=== PATIENT | female | born 1975 | race Caucasian/White ===

== ENCOUNTER 2021-06-22 10:36 | Outpatient (REF) | payer BC, SELFPAY ==
[2021-06-22 10:40] LABS: MANUAL DIFF FLAG NO
[2021-06-22 11:13] LABS: Basophils Absolute Auto 0.1 X10*3/uL (0.0-0.2); Basophils Percent Auto 0.8 % (0-2); Eosinophils Absolute Auto 0.2 X10*3/uL (0.0-0.4); Eosinophils Percent Auto 2.2 % (0-4); Hematocrit 43.8 % (37-47); Imm Gran Abs Auto 0.04 X10*3/uL (0.00-0.03); Imm Gran Pct Auto 0.5 % (0.0-0.4); Lymphocytes Absolute Auto 2.3 X10*3/uL (1.2-4.9); Lymphocytes Percent Auto 26.2 % (20-40); Mean Corpuscular Hemoglobin 29.9 pg (27.0-33.0); Mean Corpuscular Volume 93.6 fL (80-98); Mean Platelet Volume 9.7 fL (9.4-12.3); Monocytes Absolute Auto 0.6 X10*3/uL (0.1-1.2); Monocytes Percent Auto 7.1 % (2-11); Neutrophils Absolute Auto 5.5 X10*3/uL (2.0-8.3); Neutrophils Percent Auto 63.2 % (45-73); Platelet Count 404 X10*3/uL (160-400); Red Blood Count 4.68 X10*6/uL (4.20-5.50); Red Cell Distribution Width 12.9 % (11.0-16.0); White Blood Count 8.7 X10*3/uL (4.8-10.8)
[2021-06-22 11:34] LABS: Alanine Aminotransferase 13 U/L (0-31); Albumin Level 4.5 g/dL (3.5-5.0); Alkaline Phosphatase 63 U/L (39-117); Anion Gap 13 (12-20); Aspartate Amino Transferase 14 U/L (5-31); Bilirubin Total 0.6 mg/dL (0.0-1.0); Blood Urea Nitrogen 17 mg/dL (9-16); Calcium 9.1 mg/dL (8.4-10.2); Carbon Dioxide 24 mmol/L (22-29); Chloride 106 mmol/L (96-108); Cholesterol 221 mg/dL; Estimated Glomerular Filt Rate > 60; Glucose Fasting 98 mg/dL (60-99); HDL Cholesterol 43 mg/dL; LDL Cholesterol Calculated 152 mg/dl; Potassium 4.5 mmol/L (3.3-5.1); Sodium 138 mmol/L (135-145); Total Protein 7.3 g/dL (6.5-8.0); Triglycerides 132 mg/dL
[2021-06-22 11:42] LABS: Appearance Urine CLEAR; Color Urine YELLOW; Glucose Urine UA NEG (NEG); Leukocyte Esterase Urine NEG (NEG); Nitrite Urine NEG (NEG); Specific Gravity - Urine 1.015 (1.005-1.025); Urine Blood TRACE (NEG); Urine Ketones NEG (NEG); Urine Protein NEG (NEG-TRACE)
[2021-06-22 11:57] LABS: Bacteria Urine TRACE /LPF; Squamous Epithelial Cell Urine TRACE /LPF
[2021-06-22 11:58] LABS: RBC Urine 0 /HPF (0); WBC Urine 0 /HPF (0-4)
== END 2021-06-22 10:37 | disposition home or self-care (01) ==
LOC: HO.LNP 10:36
PROVIDERS: Visit Provider Internal Medicine
DX: Z00.00 Encounter for general adult medical examination without abnormal findings (principal); Z13.220 Encounter for screening for lipoid disorders
CPT/HCPCS: 80053; 80061; 81001; 81003; 85025

== ENCOUNTER 2022-06-30 10:41 | Outpatient (REF) | payer BC, SELFPAY ==
[2022-06-30 10:43] LABS: MANUAL DIFF FLAG NO
[2022-06-30 11:36] LABS: Basophils Absolute Auto 0.1 X10*3/uL (0.0-0.2); Basophils Percent Auto 0.8 % (0-2); Eosinophils Absolute Auto 0.2 X10*3/uL (0.0-0.4); Eosinophils Percent Auto 2.1 % (0-4); Hematocrit 44.2 % (37.0-47.0); Hemoglobin 14.7 g/dl (12.0-16.0); Imm Gran Abs Auto 0.04 X10*3/uL (0.00-0.03); Imm Gran Pct Auto 0.4 % (0.0-0.4); Lymphocytes Absolute Auto 2.3 X10*3/uL (1.2-4.9); Lymphocytes Percent Auto 25.7 % (20-40); Mean Corpuscular HGB Conc 33.3 g/dl (31.0-35.0); Mean Corpuscular Hemoglobin 30.8 pg (27.0-33.0); Mean Corpuscular Volume 92.5 fL (80.0-98.0); Mean Platelet Volume 9.8 fL (9.4-12.3); Monocytes Absolute Auto 0.6 X10*3/uL (0.1-1.2); Monocytes Percent Auto 6.4 % (2-11); Neutrophils Absolute Auto 5.8 x10*3/uL (2.0-8.3); Neutrophils Percent Auto 64.6 % (45-73); Platelet Count 411 X10*3/uL (160-400); Red Blood Count 4.78 X10*6/uL (4.20-5.50); Red Cell Distribution Width 12.6 % (11.0-16.0)
[2022-06-30 11:41] LABS: Appearance Urine Cloudy; Color Urine Yellow; Glucose Urine UA Negative (Negative); Leukocyte Esterase Urine Negative (Negative); Nitrite Urine Negative (Negative); Urine Blood Negative (Negative); Urine Ketones Negative (Negative); Urine Protein Negative (Neg-Trace)
[2022-06-30 11:56] LABS: Alanine Aminotransferase 20 U/L (0-31); Albumin Level 4.4 g/dL (3.5-5.0); Alkaline Phosphatase 76 U/L (39-117); Anion Gap 17 (12-20); Aspartate Amino Transferase 18 U/L (5-31); Bacteria Urine 4+ (None Seen); Bilirubin Total 0.3 mg/dL (0.0-1.0); Blood Urea Nitrogen 16 mg/dL (9-16); Calcium 9.3 mg/dL (8.4-10.2); Carbon Dioxide 24 mmol/L (22-29); Chloride 103 mmol/L (96-108); Cholesterol 203 mg/dL; Estimated Glomerular Filt Rate 56; Glucose Fasting 94 mg/dL (60-99); HDL Cholesterol 48 mg/dL; Hyaline Casts Urine 0-2 /LPF (0-2); LDL Cholesterol Calculated 131 mg/dl; Potassium 4.6 mmol/L (3.3-5.1); RBC Urine 0-2 /HPF (0-2); Sodium 139 mmol/L (135-145); Total Protein 7.5 g/dL (6.5-8.0); Triglycerides 122 mg/dL; WBC Urine 0-5 /HPF (0-5)
== END 2022-06-30 10:42 | disposition home or self-care (01) ==
LOC: HO.LNP 10:41
PROVIDERS: Visit Provider Internal Medicine
DX: Z00.00 Encounter for general adult medical examination without abnormal findings (principal)
CPT/HCPCS: 80053; 80061; 81001; 85025

== ENCOUNTER 2023-06-30 10:49 | Outpatient (REF) | payer BC, SELFPAY ==
[2023-06-30 10:56] LABS: MANUAL DIFF FLAG NO
[2023-06-30 11:19] LABS: Appearance Urine Cloudy; Color Urine Yellow; Glucose Urine UA Negative (Negative); Leukocyte Esterase Urine Trace (Negative); Nitrite Urine Negative (Negative); PH 5.5 (5.0-9.0); Specific Gravity - Urine >= 1.030 (1.005-1.025); UMIC TRIGGER UACC YES; Urine Blood Negative (Negative); Urine Ketones Negative (Negative); Urine Protein Negative (Neg-Trace)
[2023-06-30 11:25] LABS: Basophils Absolute Auto 0.1 X10*3/uL (0.0-0.2); Basophils Percent Auto 0.8 % (0-2); Eosinophils Absolute Auto 0.3 X10*3/uL (0.0-0.4); Eosinophils Percent Auto 3.6 % (0-4); Hematocrit 44.4 % (37.0-47.0); Hemoglobin 14.3 g/dl (12.0-16.0); Imm Gran Abs Auto 0.02 X10*3/uL (0.00-0.03); Imm Gran Pct Auto 0.3 % (0.0-0.4); Lymphocytes Absolute Auto 2.2 X10*3/uL (1.2-4.9); Lymphocytes Percent Auto 27.7 % (20-40); Mean Corpuscular HGB Conc 32.2 g/dl (31.0-35.0); Mean Corpuscular Hemoglobin 30.5 pg (27.0-33.0); Mean Corpuscular Volume 94.7 fL (80.0-98.0); Mean Platelet Volume 9.9 fL (9.4-12.3); Monocytes Absolute Auto 0.6 X10*3/uL (0.1-1.2); Monocytes Percent Auto 7.3 % (2-11); Neutrophils Absolute Auto 4.7 x10*3/uL (2.0-8.3); Neutrophils Percent Auto 60.3 % (45-73); Platelet Count 383 X10*3/uL (160-400); Red Blood Count 4.69 X10*6/uL (4.20-5.50); Red Cell Distribution Width 12.5 % (11.0-16.0); White Blood Count 7.8 X10*3/uL (4.8-10.8)
[2023-06-30 11:35] LABS: Alanine Aminotransferase 21 U/L (0-31); Albumin Level 4.4 g/dL (3.5-5.0); Alkaline Phosphatase 65 U/L (39-117); Anion Gap 15 (12-20); Aspartate Amino Transferase 20 U/L (5-31); Bilirubin Total 0.5 mg/dL (0.0-1.0); Blood Urea Nitrogen 30 mg/dL (9-16); Calcium 9.6 mg/dL (8.4-10.2); Carbon Dioxide 24 mmol/L (22-29); Chloride 107 mmol/L (96-108); Cholesterol 210 mg/dL (<200); Estimated Glomerular Filt Rate 56; Glucose Fasting 86 mg/dL (60-99); HDL Cholesterol 50 mg/dL (>40); LDL Cholesterol Calculated 134 mg/dL (<100); Potassium 4.2 mmol/L (3.3-5.1); Sodium 142 mmol/L (135-145); Total Protein 7.6 g/dL (6.5-8.0); Triglycerides 130 mg/dL (<150)
[2023-06-30 11:40] LABS: Bacteria Urine 4+ (None Seen); Calcium Oxalate Crystals Urine Present; Hyaline Casts Urine 0-2 /LPF (0-2); RBC Urine 0-2 /HPF (0-2); WBC Urine 0-5 /HPF (0-5)
== END 2023-06-30 10:50 | disposition home or self-care (01) ==
LOC: HO.LNP 10:49
PROVIDERS: Visit Provider Internal Medicine
DX: Z00.00 Encounter for general adult medical examination without abnormal findings (principal)
CPT/HCPCS: 80053; 80061; 81001; 85025

== ENCOUNTER 2023-07-07 10:47 | Day surgery (SDC) | payer BC, SELFPAY ==
--- NOTE | 2023-07-06 11:49 | HO.ANESPROP2 ---
Documented by User: Collette Polanco NP 07/06/23 11:50 HPI - Anesthesia Eval Consult details Narrative: 48yo F for Colonoscopy [facility] Past Medical History Medical History (Updated 07/06/23 @ 11:47 by Collette Polanco NP) Acne Migraines Surgical History Surgical History (Updated 07/06/23 @ 12:27 by Geno Kingston) H/O wisdom tooth extraction Hx of hand surgery History of cholecystectomy Social History Patient Tobacco Use Status: Never used Tobacco Use of substances other than those prescribed or required for medical reasons: No Are you DNR?: No Advance Directives: No Advance Directives Information Provided: Yes Recently lost weight without trying: No Nutrition Risks: No Nutritional Risk : No Poor oral hygiene: No Meds Allergies Allergy/AdvReac Type Severity Reaction Status Date / Time codeine Allergy Unknown Unknown Verified 07/06/23 11:47 Home Medications Medication Instructions Recorded Confirmed Last Taken Type clindamycin 1.2 % (1 % topical DAILY 07/06/23 07/05/23 History base)-benzoyl peroxide 5 % topical gel galcanezumab-gnlm 120 mg/mL mg subcut 07/06/23 06/29/23 History subcutaneous syringe (Emgality) spironolactone 50 mg tablet 50 mg PO BID 07/06/23 07/07/23 07/06/23 History 0800 sumatriptan 85 mg-naproxen 500 mg tab PO 07/06/23 Unknown History tablet tazarotene 07/06/23 Unknown History verapamil 120 mg tablet,extended 120 mg PO DAILY 07/06/23 07/07/23 07/05/23 History release Exam Exam Date and Time: July 06, 2023 114 Pertinent Lab Results Pertinent Lab Results: Laboratory Tests 06/30/23 07:15 WBC 7.8 Hgb 14.3 Hct 44.4 Plt Count 383 Sodium 142 Potassium 4.2 Chloride 107 Carbon Dioxide 24 BUN 30 H Creatinine 1.05 Assessment and Plan Assessment Anesthesia Assessment: Chart Reviewed Documented by User: Selwyn Anderson MD 08/10/23 18:30 [facility] Past Medical History Medical History (Updated 07/06/23 @ 11:47 by Collette Polanco NP) Acne Migraines Functional capacity: independent ambulation Family History Family history of problems with anesthesia: No Surgical History Surgical History (Updated 07/06/23 @ 12:27 by Geno Kingston) H/O wisdom tooth extraction Hx of hand surgery History of cholecystectomy History of Problems with Anesthesia: No Social History Patient Tobacco Use Status: Never used Tobacco Use of substances other than those prescribed or required for medical reasons: No Are you DNR?: No Advance Directives: No Advance Directives Information Provided: Yes Recently lost weight without trying: No Nutrition Risks: No Nutritional Risk : No Poor oral hygiene: No Meds Allergies Allergy/AdvReac Type Severity Reaction Status Date / Time codeine Allergy Unknown Unknown Verified 07/06/23 11:47 Home Medications Medication Instructions Recorded Confirmed Last Taken Type clindamycin 1.2 % (1 % topical DAILY 07/06/23 07/05/23 History base)-benzoyl peroxide 5 % topical gel galcanezumab-gnlm 120 mg/mL mg subcut 07/06/23 06/29/23 History subcutaneous syringe (Emgality) spironolactone 50 mg tablet 50 mg PO BID 07/06/23 07/07/23 07/06/23 History 0800 sumatriptan 85 mg-naproxen 500 mg tab PO 07/06/23 Unknown History tablet tazarotene 07/06/23 Unknown History verapamil 120 mg tablet,extended 120 mg PO DAILY 07/06/23 07/07/23 07/05/23 History release Exam Airway Mallampati Class: III Loose/Missing/Broken Teeth: Yes Assessment and Plan Assessment Anesthesia Assessment: Anesthesia Plan Discussed Final Anesthetic Review Family History of Problems with Anesthesia: No History of Problems with Anesthesia: No NPO: Yes ASA Class: II Final Preanesthetic Review: Meds/Allgs Chart Reviewed, Consent Obtained/Reviewed and Anes Risks/Benef Reviewed Patient Risk: Intermediate Procedure Risk: Intermediate Anesthetic Plan Anesthetic Plan: MAC: and Agree w/ Assess. and Plan Disposition: Standard PACU
[2023-07-07 11:12] VITALS: BMI 35.0
[2023-07-07 11:30] VITALS: BP 120/73; PULSE 84; RESP 20; TEMP 36.9; O2SAT 97
[2023-07-07] MEDS: Lactated Ringers 1,000 ML 100 ML IVCONT (11:46)
[2023-07-07 12:00] LABS: UPreg QC Valid YES; Urine Pregnancy NEGATIVE (NEGATIVE)
--- NOTE | 2023-07-07 13:08 | P.BOP_ITS ---
Brief Operative Note Date of Service: 07/07/23 Pre-op diagnosis: Screening Post-op diagnosis: other (Polyps) Procedure: Colonoscopy to the cecum with hot snare polypectomy x 2 Surgeon: Hayder Salinas MD Anesthesia: MAC Was an Lay Out And Detail Drafter used for this Procedure?: No Estimated blood loss (mL): 0 Pathology: other (A. Ascending colon polyp B. Polyp at 50cm) Condition: stable Disposition: PACU
[2023-07-07 13:10] VITALS: BP 122/75; PULSE 96; RESP 16; TEMP 36.2; O2SAT 97
[2023-07-07 13:25] VITALS: BP 131/78; PULSE 90; RESP 16; O2SAT 97
--- NOTE | 2023-07-07 13:26 | OP_ITS ---
DATE OF SERVICE: 07/07/2023 SURGEON: Hayder Salinas MD INDICATIONS: The patient presents for evaluation of colorectal cancer screening. Full consent has been obtained from her for this, including risks of bleeding and perforation. PREOPERATIVE DIAGNOSIS: Colorectal cancer screening. POSTOPERATIVE DIAGNOSIS: PROCEDURE PERFORMED: Colonoscopy to the cecum with hot snare polypectomy x2. ESTIMATED BLOOD LOSS: COMPLICATIONS: ANESTHESIA: Monitored anesthesia care. ASSISTANTS: SPECIMENS: POSTOPERATIVE DIAGNOSES: Colorectal cancer screening, colon polyps, mild diverticulosis, and internal hemorrhoids. DESCRIPTION OF PROCEDURE: The patient was placed in the left lateral decubitus position the digital rectal exam revealed no abnormalities. The Olympus video pediatric colonoscope was entered into the rectum and advanced easily to the cecum. Once in the cecum, I did identify normal-appearing cecal pouch with appendiceal orifice and a normal-appearing ileocecal valve. The entire cecum appeared normal. The scope was slowly withdrawn assessing all mucosal surfaces carefully. Preparation was excellent. In the proximal ascending colon was an approximately 12 mm polyp, which was removed in piecemeal fashion and recovered by suction. The polypectomy site appeared clean, without any sign of residual polyp nor bleeding. At 50 cm was an approximately 6 to 8 mm polyp, which was removed by hot snare polypectomy and recovered by suction. The polypectomy site appeared clean, without any sign of residual polyp nor bleeding. I did not visualize any other polyps, colitis, nor angiodysplasia. There was a mild amount of sigmoid diverticulosis. In the rectum, scope was retroflexed visualizing small internal hemorrhoids, but no other pathology. The rectal mucosa appeared normal. The scope was straightened and withdrawn from the patient. She tolerated the procedure well and was returned to the recovery area in stable condition. IMPRESSION: 1. Colon polyps. 2. Diverticulosis. 3. Internal hemorrhoids. PLAN: The results of the pathology will be checked. If these are tubular adenomas or serrated polyps. I would recommend a repeat colonoscopy within 5 years for further screening. If they both are hyperplastic polyps, I would recommend a repeat colonoscopy in 10 years for screening. She was advised not to use any aspirin and NSAIDs for 1 week. MD SAKSHI Delgado/JENNIFERL / [id number]
[2023-07-07] MEDS: Acetaminophen 325 MG TABLET 650 MG PO (13:41)
== END 2023-07-07 14:05 | disposition home or self-care (01) ==
PROVIDERS: Nurse Practitioner; PCP Internal Medicine; Visit Provider Internal Medicine
PROC: 0DJD8ZZ Inspection of Lower Intestinal Tract, Via Natural or Artificial Opening Endoscopic (ICD-10-PCS; CPT 45378; principal; 2023-07-07 11:50)
DX: Z12.11 Encounter for screening for malignant neoplasm of colon (principal); K63.5 Polyp of colon; K57.30 Diverticulosis of large intestine without perforation or abscess without bleeding; K64.8 Other hemorrhoids; K58.0 Irritable bowel syndrome with diarrhea; Z79.899 Other long term (current) drug therapy; Z90.49 Acquired absence of other specified parts of digestive tract
CPT/HCPCS: 45385; 81025; 88305; J2250

== ENCOUNTER 2023-09-08 10:58 | Outpatient (REF) | payer BC, SELFPAY ==
[2023-09-08 11:23] LABS: Blood Urea Nitrogen 13 mg/dL (9-16); Estimated Glomerular Filt Rate > 60
== END 2023-09-08 10:59 | disposition home or self-care (01) ==
LOC: HO.LNP 10:58
PROVIDERS: Visit Provider Internal Medicine
DX: R79.9 Abnormal finding of blood chemistry, unspecified (principal)
CPT/HCPCS: 82565; 84520

== ENCOUNTER → 2023-11-22 07:47 | Outpatient (BNVA) | payer BC, SELFPAY | PROVIDERS: PCP Internal Medicine; Visit Provider Surgery ==

== ENCOUNTER 2023-12-13 14:48 | Outpatient (AMB) | payer BC, SELFPAY ==
--- NOTE | 2023-12-13 14:55 | MHC.OFFVISWM ---
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 She heard about the program from friends. Her goal is to lose weight and achieve a healthy lifestyle as well as to improve, if not resolve, obesity related medical conditions, including agnes. She reports first being concerned about her weight over the last 4 years, highest weight to date was 232. Her initial weight upon presentation to the [facility] on 11/22/23 was 224 pounds with a BMI of 35.6. Current weight is 221.2 pounds with a BMI of 35.2. She states she has changed her meal plan over the last month to reduce junk food and crackers. She has tried multiple methods of weight loss including fad diets without permanent results. She lives with her and daughter. 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 She wakes at:?530 am, and goes to bed at?930 pm. Dinner is at 6 pm. Breakfast: 1-2 eggs, 1/2 vietnamese muffin w PB, coffee non dairy creamer, stevia x 2 AM snack: skip Lunch: yogurt w granola and berries or leftovers PM snack: skip or granola bar or pure protein bar Dinner: fish, veg, rice, chicken, beef stew, pasta After dinner: popcorn, Other snacks: cookies Liquids: 40-60 oz water, no soda, no juice Alcohol/marijuana/tobacco intake: rare etoh, no cannabis, no tobacco Exercise: walk 3 x per week 3 miles. could join a gym PF. GERD score: 2 BARBARA score: 1 ESS score: 5 QOL score: 57 PFSH Medical History Acne Migraines Surgical History H/O wisdom tooth extraction Hx of hand surgery History of cholecystectomy Family History Father Family history of prostate cancer in father Social History Alcohol intake: current Alcohol intake frequency: holidays/special occasions only Alcohol type: hard liquor and other Patient Tobacco Use Status: Never used Tobacco Physical Exam Vital Signs: Last Vital Signs Temp 97.8 F 12/13/23 15:02 Pulse 91 12/13/23 15:02 BP 141/95 H 12/13/23 15:02 Pulse Ox 97 12/13/23 15:02 Oxygen Delivery Method Room Air 12/13/23 15:02 BMI result Body Mass Index 35.2 Const General: cooperative, healthy appearing and no acute distress Orientation/consciousness: patient oriented x3 HEENT Head: Yes normal to inspection Ears: hearing grossly normal bilaterally General nose exam: Normal external nose present Face and sinus: Yes normal facial exam Eyes General: appearance normal, both eyes and all related structures Resp Effort & Inspection: normal respiratory effort Auscultation: clear to auscultation bilaterally Cardio Rate: regular rate Rhythm: regular rhythm Heart sounds: S1 normal heart sound present and S2 normal heart sound present GI Inspection: Yes normal to inspection, No distended and Yes obesity Palpation (GI): Soft to palpation, nontender and no guarding Auscultation: normal bowel sounds Skin General skin exam: no rashes or lesions noted Neuro General: patient oriented x3 Extrem General: No edema Psych Appearance: grossly normal Mental Status: mental status grossly normal Speech and movement: Normal speech and movement present Affect: normal affect Attitude: cooperative Assessment & Plan Assessment & Plan (1) Obesity (BMI 30-39.9): Code(s): E66.9 - Obesity, unspecified Plan: This is a?48 yo female who will start our SWL program to prepare for bariatric surgery.? Blood work, h pylori , CXR, ECG, Abd US and UGI have been ordered. She is being scheduled for RD and BH initial consultations. She will start SWL classes and watch the first three videos before her next appointment. ? Adequate sleep of 7-8 hours per night discussed, awakening at 530 am and going to bed around 930 pm ? Purchase body composition analyzer scale ([employer] recommended) and check weight weekly. The best time to do this is first thing in the morning after going to the bathroom. 1. Nutritional counseling: Be sure to careful read the number of scoops per shake Start with 2 Celebrate Rebuild shakes ([facility] [employer], [employer], Instagram) First shake (1.5 scoops in 12 oz unsweetened almond milk) at 6:30am-8:30am, Second shake (1.5 scoops in 12 oz unsweetened almond milk) at 9:30am-11:30am 2 protein bars (Weekend-a-gogoebrate bars at [facility] [employer], [employer], Instagram) First bar at 12:30pm-2:30pm. Second bar at 3:30pm-5:30pm Dinner at 6pm (8 forks of protein and 8 forks of salad/vegetables). Meal to include lean meat (beef, fish, pork, turkey, chicken), cooked vegetables or a salad with olive oil and/or fruits (berries, pears, apples, kiwi). Avoid salt, breads, potatoes, rice, pasta, desserts. may have fresh fruit after dinner if needed (apple, pear, kiwi) or 3/4 cup fresh berries (straw, blue, rasp, black) Try to drink 64 oz of water daily and avoid soda and juices. ?2. Each shake would be drunk slowly, like coffee in a period of 2 hours. ?3. Cut each bar in 4 pieces and eat each piece in 30 min ?to make each bar last 2 hours. ?4. I emphasized the importance of measuring accurately the food portion and measure it carefully when serving the food on the plate ?5. The meal portions include 8 full-size forks of meat and 8 full-size forks of salad. You always eat the meat portion but you can replace up to half of the forks of salad/vegetables with rice, potatoes or pasta, or a fruit ?if you like. The less you do it the better weight loss will be. ?6. One full-size fork is what can be scooped on the fork without falling aside and not what can be bit with the fork. Use regular forks like those you find in a typical restaurant. ?7.? Please send me weight measurements as soon as possible and then once a week. Always include your diet and exercise plan. Alternatively come weekly at the office for weight checks and send me the measurements. ?8. Exercise counseling: Begin by watching a stretching for beginners video. Start slowly and begin to stretch your muscles. You should do this before and after each exercise session to prevent injury. Please join [employer] gym near your home. Ask the product manager medical device or one of the trainers how to use the machines if you are unfamiliar with them. Start elliptical with a resistance of 2. Increase resistance by 1 every 3 min to your most comfortable resistance with a max resistance of 8. Reduce the resistance by 1 every 3 minutes back down to 2 and repeat cycles for 300 calories. Alternatively, start treadmill with a speed of 3.0 and incline of 0, increasing incline by 1 every 3 minutes to the highest comfortable level (max 6 for now) then decrease in the same fashion. Repeat process to a goal of 300 calories. Goal of 2000 calories burned or more weekly. You may also consider use of the stationary bike. The easiest would be to chose the fat-burn or interval training program on the machine and do this until you reach the 300 calorie goal. Alternatively, you can manually adjust the resistance in a similar fashion as mentioned above, (resistance of 2-8 with a goal speed of 12 mph). Tracking calories is essential. 9. Alternatively start walking outside daily, tracking calories with a goal of 300 calories per day, daily. You can download the [employer] which can track your time, distance and calories while walking outside. You press start in the [employer]ides when you start and then stop when you are finished. 10.? It is important to communicate by text weekly with your weight and especially if you are having any problems with the plans. 11. Please get labs, EKG and chest X-Ray within 1 week. 12. Obtained consent to participate in the [place] [facility]?Registry. 13. Please follow the diet plan exactly, without any change. If you do not like something about the plan or you feel hungry, you need to communicate with me so I can help you revise the plan. You should not change the plan yourself. Text me at [phone] 14. Goal is to lose at least 12 pounds in the first month 15. Goal is to lose 10% of your weight before surgery, which is about 22 lbs. Ultimate weight goal: 199 lbs before surgery Patient is morbidly obese and is not considered stable at this time.?I spent a total of 70 minutes reviewing/updating records, examining the patient and counseling the patient on weight management as detailed above. Orders: Orders Hemoglobin A1c Today E66.9 - Obesity, unspecified IRON PROFILE Today E66.9 - Obesity, unspecified Comprehensive Met. Panel Today E66.9 - Obesity, unspecified Vitamin B12 and Folate Today E66.9 - Obesity, unspecified C Reactive Protein Today E66.9 - Obesity, unspecified Vitamin B1 Today E66.9 - Obesity, unspecified Vitamin A Today E66.9 - Obesity, unspecified US abdomen comp w elastography Today E66.9 - Obesity, unspecified Insulin Today E66.9 - Obesity, unspecified H Pylori Breath Test Today E66.9 - Obesity, unspecified Complete Blood Count Auto Diff Today E66.9 - Obesity, unspecified Lipid Panel Today E66.9 - Obesity, unspecified Zinc Today E66.9 - Obesity, unspecified TSH reflex Free T4 Today E66.9 - Obesity, unspecified Ferritin Today E66.9 - Obesity, unspecified Vitamin D 25-OH Total Today E66.9 - Obesity, unspecified XR chest 2V Today E66.9 - Obesity, unspecified ECG 12 lead EKG Today E66.9 - Obesity, unspecified FL upper GI w air Today E66.9 - Obesity, unspecified Referrals Behavioral Health Referral E66.9 - Obesity, unspecified Nutrition/Dietitian Referral E66.9 - Obesity, unspecified Coding Level of Care Code New Pt Level 5 (35028) Diagnoses Obesity (BMI 30-39.9) E66.9 Time Spent (min) 70
[2023-12-13 15:02] VITALS: BP 141/95; PULSE 91; TEMP 36.6; O2SAT 97; BMI 35.2
== END 2023-12-13 17:21 | disposition home or self-care (01) ==
PROVIDERS: PCP Internal Medicine; Visit Provider Physician Assistant Surgical
DX: E66.9 Obesity, unspecified (principal); Z68.35 Body mass index [BMI] 35.0-35.9, adult
CPT/HCPCS: 99205

== ENCOUNTER → 2023-12-13 14:48 | Outpatient (BNVA) | payer BC, SELFPAY | PROVIDERS: PCP Internal Medicine; Visit Provider Physician Assistant Surgical ==

== ENCOUNTER 2023-12-25 12:45 | Outpatient (AMB) | payer BC, SELFPAY ==
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
== END 2023-12-25 13:45 | disposition home or self-care (01) ==
PROVIDERS: PCP Internal Medicine; Visit Provider Counselor Mental Health
DX: F43.20 Adjustment disorder, unspecified (principal); E66.9 Obesity, unspecified; Z68.35 Body mass index [BMI] 35.0-35.9, adult; G47.33 Obstructive sleep apnea (adult) (pediatric)
CPT/HCPCS: 90791

== ENCOUNTER → 2023-12-25 12:45 | Outpatient (BNVA) | payer BC, SELFPAY | PROVIDERS: PCP Internal Medicine; Visit Provider Counselor Mental Health ==

== ENCOUNTER 2024-01-10 14:43 | Outpatient (AMB) | payer BC, SELFPAY ==
[2024-01-10 08:59] VITALS: BMI 33.6
--- NOTE | 2024-01-10 08:59 | A.OFFVIS_ITS ---
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 They were last seen in the office on 12/13/2023, recorded weight at that time was 221.2 pounds, with a BMI of 35.2. Today's weight is 211.6 pounds and BMI is 33.6. There has been a weight loss of 9.6 pounds since initiating the surgical weight loss program on 12/13/2023 with a total body weight loss of 4.3 %. She states she has been following the plan. She states that changing the plan to shake, bar, shake, bar, meal no further nausea. She has noticed an improvement in her energy Pre op work up completed as follows: SWL classes:? [] appts: Clear-12/25/2023 ? ? RD appts: Not yet done Labs: Not yet done H. pylori: Not yet done CXR: Not yet done EKG: Not yet done ABD U/S: Not yet done UGI: Not yet done The patient reports . The patient does have a body composition scale. They also have not been communicating weekly. Current meal plan includes: 2 Celebrate Rebuild shakes First shake (1.5 scoops in 12 oz unsweetened almond milk) at 6:30am-8:30am, First bar at 9:30am-11:30am 2 protein bars (Celebrate bars) Second shake (1.5 scoops in 12 oz unsweetened almond milk) at 12:30pm-2:30pm. Second bar at 3:30pm-5:30pm Dinner at 6pm (8 forks of protein and 8 forks of salad/vegetables). may have fresh fruit after dinner 1-2 x per week Drinking 60 oz of water Current exercise plan includes: walking outside, 3 mi-5 mi, 5-7 days per week. about 400 eleuterio per session hasn't joined a gym yet PFSH Medical History Acne Migraines Surgical History H/O wisdom tooth extraction Hx of hand surgery History of cholecystectomy Family History Father Family history of prostate cancer in father Social History Alcohol intake: current Alcohol intake frequency: holidays/special occasions only Alcohol type: hard liquor and other Patient Tobacco Use Status: Never used Tobacco Telehealth Telehealth Telehealth Platform: Telephone Location of provider rendering services: practice address Location of patient: address on file Patient Identification confirmed using: Name, : Yes Telehealth method: voice only Patient verbally consented to treatment: Yes Patient verbally consented to billing insurance company: Yes Patient informed of any privacy concerns related to visit: Yes Minutes spent on Phone/Video with Pt.: 15 Assessment & Plan Assessment & Plan (1) Obesity (BMI 30-39.9): Code(s): E66.9 - Obesity, unspecified Category: Medical Plan: Making good progress. We did change the order of her shakes and bars with much improvement in her tolerance. We will change her meal plans slightly: 2 Celebrate Rebuild shakes First shake (1 scoop in 12 oz unsweetened almond milk) at 6:30am-8:30am, First bar at 9:30am-11:30am 2 protein bars (Celebrate bars) Second shake (1 scoop in 12 oz unsweetened almond milk) at 12:30pm-2:30pm. Second bar at 3:30pm-5:30pm Dinner at 6pm (8 forks of protein and 8 forks of salad/vegetables). Encouraged to continue her exercise routine with a goal of approximately 400 calories, 5 days per week. She was additionally encouraged to consider joining a gym so she may try different pieces of exercise equipment as she would prefer to exercise outside, however purchasing a piece of equipment for home would be beneficial for her and I suggested trying the different options at the gym before she were to purchase one. She will take this under consideration. We will refer to Dr. Crow for continued preoperative care. Reminded of the need to get her labs, chest x-ray, EKG done.
== END 2024-01-10 15:24 | disposition home or self-care (01) ==
LOC: HO.HBS 14:43
PROVIDERS: PCP Internal Medicine; Visit Provider Physician Assistant Surgical
DX: E66.9 Obesity, unspecified (principal); Z68.33 Body mass index [BMI] 33.0-33.9, adult
CPT/HCPCS: 99212; 99442

== ENCOUNTER → 2024-01-10 14:43 | Outpatient (BNVA) | payer BC, SELFPAY | PROVIDERS: PCP Internal Medicine; Visit Provider Physician Assistant Surgical ==

== ENCOUNTER 2024-01-12 07:24 | Outpatient (REF) | payer BC, SELFPAY ==
--- NOTE | ~2024-01-12 | XR_ITS ---
EXAMINATION: XR CHEST CLINICAL INFORMATION: Obesity, unspecified COMPARISON: None available. TECHNIQUE: 2 views of the chest were obtained. FINDINGS: No significant abnormality is noted involving the heart, lungs, mediastinum, bony thorax or soft tissues. XR/XR chest 2V IMPRESSION: No acute cardiopulmonary disease.
--- NOTE | ~2024-01-12 | US_ITS ---
EXAMINATION: US COMPLETE ABDOMEN WITH LIVER ELASTOGRAPHY CLINICAL INFORMATION: Obesity. COMPARISON: None available. TECHNIQUE: Real-time imaging of the abdominal viscera. Noninvasive ultrasound liver fibrosis assessment is performed using [employer] ElastPQ point quantification shear wave elastography (2D-SWE) with a C5-2 MHz transducer. Multiple elastography samples are obtained. FINDINGS: PANCREAS: Normal. The visualized pancreatic head and body are normal in appearance. The remainder of the pancreas is obscured from visualization by the overlying bowel gas. ABDOMINAL AORTA: The proximal, middle, and distal aortic segments are normal in caliber. INFERIOR VENA CAVA: Visualized portions are normal. LIVER: There is mild hepatomegaly. The liver demonstrates normal contour. Anterior to the gallbladder fossa, there is a focus of geographic fatty infiltration. No focal lesion or intrahepatic biliary duct dilatation. The right lobe measures 17.4 cm in length. The left lobe measures 9.9 cm in length. Portal flow is towards the liver (hepatopetal). Shear wave liver elastography median stiffness is 1.31 m/s (reference: normal median stiffness is 1.3 m/s or less). IQR/median stiffness to assess sampling precision is 0.06 (reference: good quality data set is IQR/median stiffness of 0.15 or less). GALLBLADDER: Surgically absent. COMMON BILE DUCT: Normal in caliber measuring 0.6 cm in diameter. RIGHT KIDNEY: Normal. No hydronephrosis. No renal calculi or focal parenchymal lesions. The kidney measures 11.3 cm in maximum dimension. LEFT KIDNEY: Normal. No hydronephrosis. No renal calculi or focal parenchymal lesions. The kidney measures 10.7 cm in maximum dimension. SPLEEN: Normal. The spleen measures 10.2 cm in maximum dimension. FREE FLUID: None. US/US abdomen comp w elastography IMPRESSION: 1. There is mild hepatomegaly. 2. Anterior to the gallbladder fossa, there is a focus of fatty infiltration. No focal hepatic mass or intrahepatic biliary ductal dilatation is seen. 3. Liver elastography: In the absence of other known clinical signs, measurements rule out compensated advanced chronic liver disease. If there are known clinical signs, further testing may be needed for confirmation. 4. The gallbladder surgically absent. REFERENCE: Society of Radiologists in Ultrasound Liver Stiffness Thresholds (2020): LIVER STIFFNESS THRESHOLDS: *Liver Stiffness equal or less than 1.3 m/s: High probability of being normal. *Liver Stiffness less than 1.7 m/s: In the absence of other known clinical signs, rules out compensated advanced chronic liver disease. *Liver Stiffness 1.7-2.1 m/s: Suggestive of compensated advanced chronic liver disease but need further test for confirmation. *Liver Stiffness over 2.1 m/s: Rules in compensated advanced chronic liver disease. *Liver Stiffness over 2.4 m/s: Suggestive of clinically significant portal hypertension. QUALITY OF DATA SET: *IQR/Median value equal or less than 0.15 implies a quality data set. *IQR/Median value over 0.15 implies a poor quality data set. SIGNIFICANT CHANGE FROM PRIOR EXAM: Significant change if liver stiffness measurement is 10% or greater from prior exam. OTHER CONSIDERATIONS: The stage of liver fibrosis may be overestimated in the setting of acute hepatitis, liver inflammation, elevated liver function tests, hepatic vascular congestion, obstructive cholestasis, non-fasting state, and infiltrative diseases such as amyloidosis and lymphoma. In some patients with NAFLD, the liver stiffness thresholds for compensated advanced chronic liver disease may be lower. In causes other than viral hepatitis and NAFLD, liver stiffness thresholds are not well established.
[2024-01-12 07:35] LABS: MANUAL DIFF FLAG NO
--- NOTE | 2024-01-12 07:40 | ECG_ITS ---
Test Reason : E66.9 Blood Pressure : / mmHG Vent. Rate : 069 BPM Atrial Rate : 069 BPM P-R Int : 164 ms QRS Dur : 084 ms QT Int : 408 ms P-R-T Axes : 058 049 045 degrees QTc Int : 437 ms Normal sinus rhythm Normal ECG No previous ECGs available Referred By: Farooq Connell Electronically Signed By:JYOTI HOBBS MD
[2024-01-12 07:48] LABS: Basophils Absolute Auto 0.1 X10*3/uL (0.0-0.2); Basophils Percent Auto 0.6 % (0-2); Eosinophils Absolute Auto 0.2 X10*3/uL (0.0-0.4); Eosinophils Percent Auto 1.9 % (0-4); Hematocrit 47.2 % (37.0-47.0); Hemoglobin 15.3 g/dl (12.0-16.0); Imm Gran Abs Auto 0.03 X10*3/uL (0.00-0.03); Imm Gran Pct Auto 0.4 % (0.0-0.4); Lymphocytes Absolute Auto 1.8 X10*3/uL (1.2-4.9); Mean Corpuscular HGB Conc 32.4 g/dl (31.0-35.0); Mean Corpuscular Hemoglobin 30.3 pg (27.0-33.0); Mean Corpuscular Volume 93.5 fL (80.0-98.0); Mean Platelet Volume 9.7 fL (9.4-12.3); Monocytes Absolute Auto 0.4 X10*3/uL (0.1-1.2); Monocytes Percent Auto 5.5 % (2-11); Neutrophils Absolute Auto 5.3 x10*3/uL (2.0-8.3); Neutrophils Percent Auto 68.6 % (45-73); Platelet Count 365 X10*3/uL (160-400); Red Blood Count 5.05 X10*6/uL (4.20-5.50); Red Cell Distribution Width 13.1 % (11.0-16.0); White Blood Count 7.8 X10*3/uL (4.8-10.8)
[2024-01-12 07:56] LABS: Estimated Average Glucose 97 mg/dL; Hemoglobin A1C 113.9803 umol/L
[2024-01-12 08:24] LABS: Alanine Aminotransferase 16 U/L (0-31); Albumin Level 4.5 g/dL (3.5-5.0); Alkaline Phosphatase 70 U/L (39-117); Anion Gap 12 (12-20); Aspartate Amino Transferase 16 U/L (5-31); Bilirubin Total 0.8 mg/dL (0.0-1.0); Blood Urea Nitrogen 20 mg/dL (9-16); C Reactive Protein 0.14 mg/dL (< or = 0.50); Calcium 9.5 mg/dL (8.4-10.2); Carbon Dioxide 27 mmol/L (22-29); Chloride 105 mmol/L (96-108); Cholesterol 198 mg/dL (<200); Estimated Glomerular Filt Rate > 60; Glucose Random 92 mg/dL (60-115); HDL Cholesterol 41 mg/dL (>40); Iron 81 mcg/dL (30-160); LDL Cholesterol Calculated 129 mg/dL (<100); Percent Iron Saturation 35 % (15-50); Potassium 4.3 mmol/L (3.3-5.1); Sodium 140 mmol/L (135-145); Total Iron Binding Capacity 231 mcg/dL (228-428); Total Protein 7.7 g/dL (6.5-8.0); Triglycerides 144 mg/dL (<150); Unsaturated Iron Binding 150 ug/dL
[2024-01-12 08:45] LABS: Ferritin 158 ng/mL (10-250); Insulin 10 uU/mL (2-29); TSH reflex Free T4 1.99 uIU/mL (0.32-4.0); Vitamin D 25-OH Total 44.1 ng/mL (>30)
[2024-01-12 09:01] LABS: Folate 12.6 ng/mL (> or = 4.0); Vitamin B12 965 pg/mL (200-900)
[2024-01-16 16:42] LABS: Zinc 76 mcg/dL (60-130)
[2024-01-17 01:24] LABS: Vitamin A 59 mcg/dL (38-98)
[2024-01-18 06:33] LABS: Vitamin B1 9 nmol/L (8-30)
== END 2024-01-12 07:25 | disposition home or self-care (01) ==
LOC: HO.US 07:24
PROVIDERS: PCP Internal Medicine; Visit Provider Physician Assistant Surgical
DX: E66.9 Obesity, unspecified (principal)
CPT/HCPCS: 36415; 71046; 76700; 76981; 80053; 80061; 82306; 82607; 82728; 82746; 83036; 83525; 83540; 84425; 84443; 84590; 84630; 85025; 86140; 93005

== ENCOUNTER → 2024-01-12 07:40 | Outpatient (BNV) | payer BC, SELFPAY | PROVIDERS: PCP Internal Medicine; Visit Provider Internal Medicine Cardiovascular Disease | DX: E66.9 Obesity, unspecified (principal) | CPT/HCPCS: 93010 ==

== ENCOUNTER 2024-02-09 08:20 | Outpatient (REF) | payer BC, SELFPAY ==
--- NOTE | ~2024-02-09 | FL_ITS ---
EXAMINATION: XR FLUOROSCOPY UPPER GI WITH AIR CLINICAL INFORMATION: Preop evaluation prior to bariatric surgery COMPARISON: None TECHNIQUE: Fluoroscopic air contrast upper GI examination was performed utilizing standard techniques with thin and thick barium and effervescent granules. Numerous spot images were obtained. FINDINGS: Dual and single contrast images of the esophagus demonstrate normal caliber, contour, and mucosal pattern. No evidence of stricture, mass, or ulcerations identified. Esophageal peristalsis is mildly disorganized. No evidence of hiatus hernia identified. Significant gastroesophageal reflux is seen up to the thoracic inlet. Dual contrast and single contrast images of the stomach demonstrated a normal contour. The gastric rugal folds have a mildly thickened appearance. No masses or ulcerations are seen. Contrast freely passed into the gastric antrum and duodenal bulb without delay. Single and air-contrast images of the duodenal bulb demonstrate no abnormality. The duodenal sweep has a normal appearance, course, and mucosal fold appearance. The imaged proximal jejunum has a normal fold pattern and caliber. FLUOROSCOPY TIME: 3 minutes 25 seconds Number of Spot Images: 11 Number of Cine: 11 DOSE AREA PRODUCT: 2417 uGy-m2 (microgray-meter squared) FL/FL upper GI w air IMPRESSION: 1. Mildly disorganized esophageal peristalsis 2. Significant gastroesophageal reflux 3. Mildly thickened gastric rugal folds that likely represents gastritis. This procedure was performed by Ayden Manley PA-C, and supervised by Dr. Hoang
== END 2024-02-09 08:21 | disposition home or self-care (01) ==
LOC: HO.XRAY 08:20
PROVIDERS: PCP Internal Medicine; Visit Provider Physician Assistant Surgical
DX: E66.9 Obesity, unspecified (principal)
CPT/HCPCS: 74246

== ENCOUNTER → 2024-02-09 08:21 | Outpatient (BNV) | payer BC, SELFPAY | PROVIDERS: PCP Internal Medicine; Visit Provider Physician Assistant Surgical | DX: E66.9 Obesity, unspecified (principal); Z01.818 Encounter for other preprocedural examination | CPT/HCPCS: 74246 ==

== ENCOUNTER 2024-02-19 07:55 | Outpatient (AMB) | payer BC, SELFPAY ==
--- NOTE | 2024-02-19 08:22 | A.OFFVIS_ITS ---
VS Expanded 02/19/24 08:46 Height 5 ft 6.5 in Weight 201 lb BMI 32.0 Body Fat % 39.8 Body Fat Mass 79.9 Fat Free Mass 121 Visceral Fat Rating 14 Body Water % 41.3 Body Water Mass 83 Basal Metabolic Rate/Score 1,550 Intake Visit Reasons: TV Consult/Transfer [place] Allergies codeine Allergy (Unknown, Verified 02/19/24 08:22) Unknown Medication List - Last Reconciled 02/19/24 by Jamil Crow MD clindamycin-benzoyl peroxide 1.2 %(1 % base) -5 % topical DAILY galcanezumab-gnlm (Emgality) mg subcut levonorgestrel (Mirena) intrauterine spironolactone 50 mg PO BID sumatriptan-naproxen 85-500 mg tabs PO [tazarotene ] verapamil ER 120 mg PO DAILY HPI HPI TV Consult/Transfer [place]: Details: Start time: 8.09am, End time: 8.49am ?I spent 35 minutes speaking with the patient on the phone plus an additional 5 minutes reviewing and updating records for a total of 40 minutes HPI Comments Details: Overall weight loss: 23lbs, or 10.27% TBWL Is doing 2 Celebrate Rebuild protein shakes (1 scoop each in 8oz almond milk), 2 Celebrate protein bars and one meal (8 forks of protein and 8 forks of salad or vegetables) Exercise: walking outside x5/week for 450 calories PFSH Medical History (Updated 02/19/24 @ 08:31 by Jamil Crow MD) Hypertension Acne Migraines Surgical History H/O wisdom tooth extraction Hx of hand surgery History of cholecystectomy Family History Father Family history of prostate cancer in father Social History Alcohol intake: current Alcohol intake frequency: holidays/special occasions only Alcohol type: hard liquor and other Patient Tobacco Use Status: Never used Tobacco Telehealth Telehealth Telehealth Platform: Telephone Location of provider rendering services: practice address Location of patient: address on file Patient Identification confirmed using: Name, : Yes Telehealth method: voice only Patient verbally consented to treatment: Yes Patient verbally consented to billing insurance company: Yes Patient informed of any privacy concerns related to visit: Yes Minutes spent on Phone/Video with Pt.: 40 Assessment & Plan Assessment & Plan (1) Obesity (BMI 30-39.9): Code(s): E66.9 - Obesity, unspecified Category: Medical Plan: 1. Plan for lap sleeve gastrectomy including upper GI endoscopy. All tests has been completed and reviewed and the patient is cleared for the surgery. ?If diaphragmatic or ventral hernias are present at time of surgery, these will be repaired laparoscopically as well. Risks and complications were discussed in detail including possible conversion to an open procedure, anastomotic leak, bleeding requiring transfusion, small bowel obstruction, , DVT and pulmonary embolism, cardiac, or pulmonary complications, as custodial complications such as anastomotic ulcer, insufficient weight loss and vitamin deficiencies. I emphasized the importance of close follow-up, adherence to instructions and good communication. So far she has proven to be an excellent communicator and very compliant with all our directions accomplishing a great weight loss. I believe that she is an excellent candidate and she is ready. 2. The patient participated in a structured preoperative lifestyle intervention program supervised by a physician the 2 months preceding the surgical procedure. The lifestyle intervention included a structured nutritional plan with a specific daily protein intake goal, an exercise plan with a 2000 calorie burn weekly goal, weekly behavior modification guidance and completion of eight 1- hour online nutritional classes and passing successfully the corresponding quizzes. Adherence to preoperative care plan was demonstrated by completing an extensive preoperative work-up. Program participation was demonstrated by completing 4 visits with our medical team and by sharing weekly weight measurements weekly for 2 consecutive months via an approved body composition scale. Compliance to the lifestyle intervention was demonstrated by achieving a 20lbs weight-loss or 8.35% total body weight loss (TBWL). No medications were used to achieve this weight loss. In our published experience an over 7% preoperative TBWL, achieved by meeting the diet and exercise goals of our program improves surgical outcomes, reduces the potential for surgical complications, and predicts a statistically significant higher weight loss up to 6 years postoperatively. 3. Continue same nutritional plan of 2 Celebrate Rebuild protein shakes (1 scoop each in 8oz almond milk), 2 Celebrate protein bars and one meal (8 forks of protein and 8 forks of salad or vegetables) 4. Exercise: continue walking outside x5/week for 450 calories 5. Send me weight measurements weekly on
[2024-02-19 08:46] VITALS: BMI 32.0
== END 2024-02-19 08:50 | disposition home or self-care (01) ==
LOC: HO.HBS 07:55
PROVIDERS: PCP Internal Medicine; Visit Provider Surgery
DX: E66.9 Obesity, unspecified (principal); Z68.32 Body mass index [BMI] 32.0-32.9, adult
CPT/HCPCS: 99443

== ENCOUNTER → 2024-02-19 07:55 | Outpatient (BNVA) | payer BC, SELFPAY | PROVIDERS: PCP Internal Medicine; Visit Provider Surgery ==

== ENCOUNTER 2024-07-04 11:08 | Outpatient (REF) | payer BC, SELFPAY ==
[2024-07-04 11:12] LABS: MANUAL DIFF FLAG NO
[2024-07-04 11:45] LABS: Basophils Absolute Auto 0.1 X10*3/uL (0.0-0.2); Basophils Percent Auto 0.7 % (0-2); Eosinophils Absolute Auto 0.2 X10*3/uL (0.0-0.4); Eosinophils Percent Auto 2.2 % (0-4); Hematocrit 44.8 % (37.0-47.0); Hemoglobin 14.7 g/dl (12.0-16.0); Imm Gran Abs Auto 0.03 X10*3/uL (0.00-0.03); Imm Gran Pct Auto 0.4 % (0.0-0.4); Lymphocytes Percent Auto 23.9 % (20-40); Mean Corpuscular HGB Conc 32.8 g/dl (31.0-35.0); Mean Corpuscular Hemoglobin 31.1 pg (27.0-33.0); Mean Corpuscular Volume 94.7 fL (80.0-98.0); Mean Platelet Volume 9.8 fL (9.4-12.3); Monocytes Absolute Auto 0.6 X10*3/uL (0.1-1.2); Monocytes Percent Auto 7.5 % (2-11); Neutrophils Absolute Auto 5.6 x10*3/uL (2.0-8.3); Neutrophils Percent Auto 65.3 % (45-73); Platelet Count 353 X10*3/uL (160-400); Red Blood Count 4.73 X10*6/uL (4.20-5.50); Red Cell Distribution Width 12.5 % (11.0-16.0); White Blood Count 8.5 X10*3/uL (4.8-10.8)
[2024-07-04 11:46] LABS: Appearance Urine Clear; Color Urine Yellow; Glucose Urine UA Negative (Negative); Leukocyte Esterase Urine Negative (Negative); Nitrite Urine Negative (Negative); PH 6.5 (5.0-9.0); Urine Blood Negative (Negative); Urine Ketones Negative (Negative); Urine Protein Negative (Neg-Trace)
[2024-07-04 12:03] LABS: Alanine Aminotransferase 14 U/L (0-31); Albumin Level 4.3 g/dL (3.5-5.0); Alkaline Phosphatase 62 U/L (39-117); Anion Gap 11 (12-20); Aspartate Amino Transferase 16 U/L (5-31); Bilirubin Total 0.9 mg/dL (0.0-1.0); Blood Urea Nitrogen 20 mg/dL (9-16); Calcium 9.3 mg/dL (8.4-10.2); Carbon Dioxide 27 mmol/L (22-29); Chloride 104 mmol/L (96-108); Cholesterol 225 mg/dL (<200); Estimated Glomerular Filt Rate 54; Glucose Fasting 91 mg/dL (60-99); HDL Cholesterol 52 mg/dL (>40); LDL Cholesterol Calculated 147 mg/dL (<100); Sodium 138 mmol/L (135-145); Total Protein 7.3 g/dL (6.5-8.0); Triglycerides 133 mg/dL (<150)
[2024-07-04 12:21] LABS: Bacteria Urine Trace (None Seen); Hyaline Casts Urine 0-2 /LPF (0-2); RBC Urine 0-2 /HPF (0-2); WBC Urine 0-5 /HPF (0-5)
== END 2024-07-04 11:09 | disposition home or self-care (01) ==
LOC: HO.LNP 11:08
PROVIDERS: Visit Provider Internal Medicine
DX: Z00.00 Encounter for general adult medical examination without abnormal findings (principal)
CPT/HCPCS: 80053; 80061; 81001; 85025

== ENCOUNTER 2024-08-19 15:45 | Outpatient (REF) | payer BC, SELFPAY ==
[2024-08-19 16:46] LABS: Erythrocyte Sedimentation Rate 23 MM/HR (0-20)
[2024-08-19 17:13] LABS: C Reactive Protein 0.37 mg/dL (< or = 0.50)
[2024-08-20 08:24] LABS: Lyme Abs Screen <0.90 index
[2024-08-21 00:48] LABS: A. Phagocytphilium DNA,RT-PCR NOT DETECTED (NOT DETECTED); Babesia Microti DNA, RT-PCR NOT DETECTED (NOT DETECTED); Borrelia Miyamotoi,DNA RT-PCR NOT DETECTED (NOT DETECTED); E.Chaffeensis DNA RT-PCR NOT DETECTED (NOT DETECTED); Lyme(Borrelia ssp)DNA RT-PCR NOT DETECTED (NOT DETECTED)
== END 2024-08-19 15:46 | disposition home or self-care (01) ==
LOC: HO.LNP 15:45
PROVIDERS: Visit Provider Internal Medicine
DX: R68.89 Other general symptoms and signs (principal)
CPT/HCPCS: 85652; 86140; 86617; 86618; 87468; 87469; 87478; 87484; 87798

== ENCOUNTER 2024-08-26 10:51 | Outpatient (REF) | payer BC, SELFPAY ==
[2024-08-26 10:53] LABS: MANUAL DIFF FLAG NO
[2024-08-26 11:31] LABS: Basophils Absolute Auto 0.1 X10*3/uL (0.0-0.2); Basophils Percent Auto 0.6 % (0-2); Eosinophils Absolute Auto 0.2 X10*3/uL (0.0-0.4); Hematocrit 41.3 % (37.0-47.0); Hemoglobin 13.5 g/dl (12.0-16.0); Imm Gran Abs Auto 0.02 X10*3/uL (0.00-0.03); Imm Gran Pct Auto 0.2 % (0.0-0.4); Lymphocytes Absolute Auto 1.9 X10*3/uL (1.2-4.9); Lymphocytes Percent Auto 22.6 % (20-40); Mean Corpuscular HGB Conc 32.7 g/dl (31.0-35.0); Mean Corpuscular Hemoglobin 30.5 pg (27.0-33.0); Mean Corpuscular Volume 93.4 fL (80.0-98.0); Mean Platelet Volume 9.3 fL (9.4-12.3); Monocytes Absolute Auto 0.5 X10*3/uL (0.1-1.2); Monocytes Percent Auto 6.2 % (2-11); Neutrophils Absolute Auto 5.8 x10*3/uL (2.0-8.3); Neutrophils Percent Auto 68.4 % (45-73); Platelet Count 393 X10*3/uL (160-400); Red Blood Count 4.42 X10*6/uL (4.20-5.50); Red Cell Distribution Width 12.4 % (11.0-16.0); White Blood Count 8.4 X10*3/uL (4.8-10.8)
[2024-08-26 11:50] LABS: Alanine Aminotransferase 19 U/L (0-31); Albumin Level 4.2 g/dL (3.5-5.0); Alkaline Phosphatase 66 U/L (39-117); Anion Gap 10 (12-20); Aspartate Amino Transferase 24 U/L (5-31); Bilirubin Total 0.5 mg/dL (0.0-1.0); Blood Urea Nitrogen 21 mg/dL (9-16); Calcium 9.7 mg/dL (8.4-10.2); Carbon Dioxide 29 mmol/L (22-29); Chloride 104 mmol/L (96-108); Estimated Glomerular Filt Rate > 60; Glucose Fasting 70 mg/dL (60-99); Potassium 4.4 mmol/L (3.3-5.1); Sodium 139 mmol/L (135-145); Total Protein 7.5 g/dL (6.5-8.0)
== END 2024-08-26 10:52 | disposition home or self-care (01) ==
LOC: HO.LNP 10:51
PROVIDERS: Visit Provider Internal Medicine
DX: R68.89 Other general symptoms and signs (principal)
CPT/HCPCS: 80053; 85025

== ENCOUNTER 2024-09-24 10:39 | Outpatient (REF) | payer BC, SELFPAY ==
[2024-09-24 10:41] LABS: MANUAL DIFF FLAG NO
[2024-09-24 11:10] LABS: Basophils Absolute Auto 0.1 X10*3/uL (0.0-0.2); Basophils Percent Auto 0.8 % (0-2); Eosinophils Absolute Auto 0.2 X10*3/uL (0.0-0.4); Eosinophils Percent Auto 2.8 % (0-4); Hematocrit 41.4 % (37.0-47.0); Hemoglobin 13.6 g/dl (12.0-16.0); Imm Gran Abs Auto 0.03 X10*3/uL (0.00-0.03); Imm Gran Pct Auto 0.4 % (0.0-0.4); Lymphocytes Absolute Auto 1.9 X10*3/uL (1.2-4.9); Lymphocytes Percent Auto 24.4 % (20-40); Mean Corpuscular HGB Conc 32.9 g/dl (31.0-35.0); Mean Corpuscular Hemoglobin 30.5 pg (27.0-33.0); Mean Corpuscular Volume 92.8 fL (80.0-98.0); Mean Platelet Volume 9.2 fL (9.4-12.3); Monocytes Absolute Auto 0.5 X10*3/uL (0.1-1.2); Monocytes Percent Auto 6.3 % (2-11); Neutrophils Percent Auto 65.3 % (45-73); Platelet Count 385 X10*3/uL (160-400); Red Blood Count 4.46 X10*6/uL (4.20-5.50); White Blood Count 7.6 X10*3/uL (4.8-10.8)
[2024-09-24 11:36] LABS: Alanine Aminotransferase 19 U/L (0-31); Albumin Level 4.2 g/dL (3.5-5.0); Alkaline Phosphatase 61 U/L (39-117); Anion Gap 9 (12-20); Aspartate Amino Transferase 21 U/L (5-31); Bilirubin Total 0.6 mg/dL (0.0-1.0); Blood Urea Nitrogen 21 mg/dL (9-16); Carbon Dioxide 28 mmol/L (22-29); Chloride 108 mmol/L (96-108); Estimated Glomerular Filt Rate > 60; Glucose Fasting 90 mg/dL (60-99); Potassium 4.6 mmol/L (3.3-5.1); Sodium 140 mmol/L (135-145); Total Protein 7.4 g/dL (6.5-8.0)
[2024-09-24 11:38] LABS: Rheumatoid Factor < 13.0 IU/mL (<15.0)
[2024-09-24 11:54] LABS: Erythrocyte Sedimentation Rate 25 MM/HR (0-20)
[2024-09-26 17:48] LABS: A. Phagocytphilium DNA,RT-PCR NOT DETECTED (NOT DETECTED); Babesia Microti DNA, RT-PCR NOT DETECTED (NOT DETECTED); Borrelia Miyamotoi,DNA RT-PCR NOT DETECTED (NOT DETECTED); E.Chaffeensis DNA RT-PCR NOT DETECTED (NOT DETECTED); Lyme(Borrelia ssp)DNA RT-PCR NOT DETECTED (NOT DETECTED)
[2024-09-27 15:39] LABS: Anti Nuclear Antibody Pattern Nuclear, Speckled; Anti Nuclear Antibody Screen POSITIVE (NEGATIVE)
== END 2024-09-24 10:40 | disposition home or self-care (01) ==
LOC: HO.LNP 10:39
PROVIDERS: Visit Provider Internal Medicine
DX: M19.90 Unspecified osteoarthritis, unspecified site (principal)
CPT/HCPCS: 80053; 85025; 85652; 86038; 86039; 86431; 87468; 87469; 87478; 87484; 87798

== ENCOUNTER 2025-07-07 10:31 | Outpatient (REF) | payer BC, SELFPAY ==
[2025-07-07 10:33] LABS: MANUAL DIFF FLAG NO
[2025-07-07 10:57] LABS: Appearance Urine Clear; Glucose Urine UA Negative (Negative); PH 6.0 (5.0-9.0); Specific Gravity - Urine 1.015 (1.005-1.025)
[2025-07-07 11:04] LABS: Hematocrit 42.1 % (37.0-47.0); Hemoglobin 13.8 g/dl (12.0-16.0); Imm Gran Abs Auto 0.03 X10*3/uL (0.00-0.03); Imm Gran Pct Auto 0.4 % (0.0-0.4); Lymphocytes Absolute Auto 1.8 X10*3/uL (1.2-4.9); Mean Corpuscular HGB Conc 32.8 g/dl (31.0-35.0); Mean Corpuscular Hemoglobin 31.2 pg (27.0-33.0); Mean Corpuscular Volume 95.0 fL (80.0-98.0); NRBC Abs Auto 0.000 X10*3/uL (0.0-0.012); NRBC Pct Auto 0.0 /100WBC (0.0-0.2); Platelet Count 355 X10*3/uL (160-400); Red Blood Count 4.43 X10*6/uL (4.20-5.50); White Blood Count 7.3 X10*3/uL (4.8-10.8)
[2025-07-07 11:13] LABS: Alanine Aminotransferase 21 U/L (0-31); Albumin Level 4.3 g/dL (3.5-5.0); Alkaline Phosphatase 70 U/L (39-117); Anion Gap 14 (12-20); Aspartate Amino Transferase 23 U/L (5-31); Blood Urea Nitrogen 25 mg/dL (9-16); Calcium 9.0 mg/dL (8.4-10.2); Carbon Dioxide 25 mmol/L (22-29); Chloride 106 mmol/L (96-108); Cholesterol 210 mg/dL (<200); Estimated Glomerular Filt Rate > 60; HDL Cholesterol 47 mg/dL (>40); Potassium 4.2 mmol/L (3.3-5.1); Sodium 141 mmol/L (135-145); Total Protein 7.1 g/dL (6.5-8.0); Triglycerides 103 mg/dL (<150)
[2025-07-07 11:17] LABS: Other Crystals Urine Present
== END 2025-07-07 10:32 | disposition home or self-care (01) ==
LOC: HO.LNP 10:31
PROVIDERS: Visit Provider Internal Medicine
DX: Z00.00 Encounter for general adult medical examination without abnormal findings (principal); Z13.6 Encounter for screening for cardiovascular disorders; Z13.0 Encounter for screening for diseases of the blood and blood-forming organs and certain disorders involving the immune mechanism
CPT/HCPCS: 80053; 80061; 81001; 85025